=== PATIENT | male | born 1985 | race Two or more races ===

== ENCOUNTER 2025-09-24 21:13 | Emergency (ER) | payer MEDICAID ==
[~2025-09-24] VITALS: Ht 182.9 cm; Wt 145.0 kg
[2025-09-24 21:16] VITALS: O2SAT 98
[2025-09-24 21:18] VITALS: BP 169/98; PULSE 102; RESP 18; TEMP 39.6; O2SAT 97
== END 2025-09-24 22:54 | disposition left against medical advice (07) ==
LOC: ER 21:13
DX: J02.9 Acute pharyngitis, unspecified (principal); R00.0 Tachycardia, unspecified
CPT/HCPCS: 71045; 93005; 99283